=== PATIENT | male | born 1960 | race Caucasian/White ===

== ENCOUNTER → 2019-07-25 07:34 | Outpatient (CLI) | payer OTHER, SELFPAY ==
[2019-07-25 09:01] LABS: BUN Creatinine Ratio 13.6 (6-22); Blood Urea Nitrogen 15 mg/dL (9-20); Calcium 9.6 mg/dL (8.4-10.2); Carbon Dioxide 30 mmol/L (22-32); Chloride 101 mmol/L (98-107); Cholesterol 216 mg/dL (140-199); Estimated Glomerular Filt Rate > 60.0 mL/min (>60); Glucose 95 mg/dL (80-110); HDL Cholesterol 47 mg/dL (40-60); HEMOLYSIS < 15 (0-50); LDL Cholesterol Calculated 144 mg/dL (<100); Potassium 4.5 mmol/L (3.4-5.1); Sodium 140 mmol/L (137-145); Triglycerides 125 mg/dL (35-150)
[2019-07-25 09:31] LABS: Prostate Specific Antigen Scrn 2.16 ng/mL (0.1-4.0)
== END ==
PROVIDERS: PCP Internal Medicine; Visit Provider Internal Medicine
DX: Z00.00 Encounter for general adult medical examination without abnormal findings (principal); E78.5 Hyperlipidemia, unspecified
CPT/HCPCS: 36415; 80048; 80061; G0103

== ENCOUNTER → 2020-05-25 14:32 | Outpatient (CLI) | payer OTHER, SELFPAY ==
[2020-05-26 14:50] LABS: COVID19 Sendout Not Detected (Not Detect)
== END ==
PROVIDERS: PCP Internal Medicine; Visit Provider Physician Assistant
DX: Z01.812 Encounter for preprocedural laboratory examination (principal)
CPT/HCPCS: 87635

== ENCOUNTER 2020-05-28 10:30 | Day surgery (SDC) | payer OTHER, SELFPAY ==
[2020-05-28] VITALS (7 sets, daily range): BP systolic 99–136; BP diastolic 57–73; PULSE 56–72; RESP 10–17; TEMP 36.1–37.1; O2SAT 96–99; BMI 25.1
--- NOTE | 2020-05-28 | PATH_ITS ---
[facility] Accession Number: [id number] . 01 Material submitted: . colon - TRANSVERSE COLON POLYP . 02 Diagnosis: Transverse Colon, Polyp: Tubular adenoma. MRV 05/30/2020 1034 Local . 02 Electronically signed: . Rodney Garcia MD, PhD, Pathologist NPI- [id number] . 01 Gross description: . Received in formalin, labeled transverse colon polyp, and consist of a 0.6 x 0.4 x 0.2 cm harmon-pink polyp. The margin is inked blue. The specimen is bisected and entirely submitted in cassette A1. (EA:[id number]) /MRV 05/29/2020 1101 Local . 02 Pathologist provided ICD-10: D12.3 . 02 CPT . 930441 Performed at: 01 [facility] [address] [id number] MD Danny Salcedo MD Phone: [phone] Performed at: 02 [facility] [address] [place] [id number] MD Clara Damon MD Phone: [phone]
--- NOTE | 2020-05-28 08:03 | PM.HP.1 ---
History of Present Illness History of Present Illness Date Patient Seen: 05/28/20 Chief complaint: SDC Narrative: 59-year-old male who is here for average risk colon cancer screening after prior colonoscopy performed in 2008 was normal. He currently has no active GI symptoms Meds Home Medications and Allergies Home Medications Medication Instructions Recorded Confirmed Type No Known Home Medications 05/28/20 05/28/20 History Allergies Allergy/AdvReac Type Severity Reaction Status Date / Time No Known Drug Allergies Allergy Verified 05/28/20 10:38 Exam Narrative Exam Narrative: General: Patient is well developed, not in apparent distress Cardiovascular: Regular rate and rhythm, no murmurs, rubs, or gallops; no evidence of edema; no palpable abdominal aortic aneurysm Gastrointestinal: Normoactive bowel sounds, soft, nontender, nondistended, no rebound tenderness, no hepatosplenomegaly, no evidence of hernia Assessment & Plan Assessment & Plan narrative: 59-year-old male who is here for colon cancer screening by means of colonoscopy. He is at average risk for colon cancer. There is no family history of colon cancer, colon polyps, and a prior colonoscopy performed in 2008 was normal. Regarding the procedure(s), the risks and potential complications, benefits, and alternatives (including not doing the procedure) were discussed with the patient. The risks include but are not limited to bleeding, splenic injury, infection, perforation which may require surgical intervention, missed lesions, and adverse reactions to sedative medicines. After a question and answer period, the patient agreed to proceed with the procedure(s) and gives informed consent.
[2020-05-28] MEDS: SODIUM CHLORIDE 0.9% 1,000 ML 70 ML IV (10:53)
--- NOTE | 2020-05-28 11:03 | PM.OP.ENDO ---
Operative Date/Time/Diagnoses Date of procedure: 05/28/20 Procedure Notes Procedure in detail: Surgeon: Orville Rush MD Procedure: Colonoscopy with polypectomy Preoperative diagnosis: Colon cancer screening Postoperative diagnosis: Transverse polyp status post polypectomy, grade 1 internal hemorrhoids Medications: Conscious sedation using 5 mg IV of Midazolam and 100 mcg IV of Fentanyl Preanesthesia Assessment An H and P was performed/updated and the Px?s ASA class is 1. The procedure was discussed in detail with the patient. The potential risks and complications including infection, bleeding, missed lesions, perforation, need for surgery in case of perforation, prolonged hospital stay, and were explained. A brief question and answer period was allotted and once all questions were answered, informed consent was obtained. The patient was brought back to the procedure room and placed on standard monitoring. The patient?s vital signs were monitored continuously throughout the entire procedure. Prior to starting, a timeout was performed to confirm the patient?s identity, allergies, medications, and procedure. Procedure in detail The patient was placed in left lateral decubitus position and once adequate sedation was obtained a ETHAN was performed. The digital rectal examination did not reveal any palpable lesions. The tip of the colonoscope was placed in the anal canal and advanced without difficulty all the way to the cecum which was identified by the appendiceal orifice and the ileocecal valve. Careful examination of all salmeron of the colon was performed with irrigation of any residual stool. In the transverse colon, a 4 mm sessile polyp was removed by means of cold snare. Resection and retrieval was complete with minimal bleeding. Retroflexion was performed in the rectum which revealed grade 1 internal hemorrhoids The patient tolerated the procedure well and will be brought back to the recovery area to be discharged once criteria are met. The prep was judged to be good and adequate to identify polyps less than 5 mm. The withdrawal time was 9 minutes. The total physician intraservice time was 15 minutes. Complications There were no complications and estimated blood loss was minimal. Recommendations: Resume previous diet Follow up pathology results Repeat colonoscopy in 5 or 7 or 10 years, depending on pathology results An emergency contact number was given to the patient for any complications related to the procedure
[2020-05-28] MEDS: fentaNYL 250 MCG/5 ML INJ IV (11:20)
[2020-05-28] MEDS: MIDAZOLAM 5 MG/5 ML VIAL IV (11:21)
== END 2020-05-28 12:03 | disposition home or self-care (01) ==
PROVIDERS: PCP Internal Medicine; Referring Provider Internal Medicine Gastroenterology; Visit Provider Internal Medicine Gastroenterology
PROC: 0DJD8ZZ Inspection of Lower Intestinal Tract, Via Natural or Artificial Opening Endoscopic (ICD-10-PCS; CPT 45378; principal; 2020-05-28 11:30)
DX: Z12.11 Encounter for screening for malignant neoplasm of colon (principal); K64.0 First degree hemorrhoids; D12.3 Benign neoplasm of transverse colon
CPT/HCPCS: 45385; J2250; J3010

== ENCOUNTER → 2020-09-10 08:30 | Outpatient (CLI) | payer OTHER, SELFPAY ==
--- NOTE | 2020-09-10 | DI.RAD.S_ITS ---
PROCEDURE: XR SHOULDER RT MIN 2V INDICATIONS: Pain in right shoulder TECHNIQUE: 3 views of the shoulder were acquired. COMPARISON: None. FINDINGS: Bones: No acute fracture. Superior displacement of the lateral clavicle relative to the acromion measuring approximately 1 shaft with. No definite AC joint space widening. There is widening of the coracoclavicular interval. Glenohumeral and AC joint degeneration. Soft tissues: No suspicious soft tissue calcifications. IMPRESSION: Acromioclavicular separation as above. No fracture Dictated by: Von Mercer M.D. on 09/10/2020 at 10:34 Approved by: Von Mercer M.D. on 09/10/2020 at 10:36
== END ==
PROVIDERS: PCP Internal Medicine; Referring Provider Internal Medicine; Visit Provider Internal Medicine
DX: M25.511 Pain in right shoulder (principal); M19.011 Primary osteoarthritis, right shoulder; S43.101A Unspecified dislocation of right acromioclavicular joint, initial encounter
CPT/HCPCS: 73030

== ENCOUNTER → 2020-09-16 07:27 | Outpatient (CLI) | payer OTHER, SELFPAY ==
[2020-09-16 09:34] LABS: Cholesterol 203 mg/dL (140-199); HDL Cholesterol 47 mg/dL (40-60); LDL Cholesterol Calculated 122 mg/dL (<100); Triglycerides 169 mg/dL (35-150)
== END ==
PROVIDERS: PCP Internal Medicine; Referring Provider Internal Medicine; Visit Provider Internal Medicine
DX: E78.5 Hyperlipidemia, unspecified (principal)
CPT/HCPCS: 80061; 84153; 84154

== ENCOUNTER 2023-05-02 22:38 | Emergency (ER) | payer OTHER, SELFPAY ==
[2023-05-02 23:02] VITALS: BP 147/74; PULSE 70; RESP 16; TEMP 36.6; O2SAT 100; BMI 22.8
[2023-05-03 00:44] VITALS: BP 131/67; PULSE 61; RESP 14; O2SAT 98
[2023-05-03 00:48] LABS: Add Manual Diff / Slide Review NO; Basophils Absolute Auto 0 /uL (0-100); Basophils Percent Auto 0.4 % (0-2); Eosinophils Absolute Auto 600 /uL (0-450); Eosinophils Percent Auto 9.3 % (2-4); Hematocrit 37.4 % (41-53); Hemoglobin 12.8 g/dL (13.5-17.5); Lymphocytes Absolute Auto 1300 /uL (1100-4500); Lymphocytes Percent Auto 19.2 % (25-40); Mean Corpuscular HGB Conc 34.2 % (30-36); Mean Corpuscular Hemoglobin 30.1 PG (26-34); Monocytes Absolute Auto 900 /uL (0-900); Monocytes Percent Auto 12.4 % (3-14); Neutrophils Absolute Auto 4100 /uL (1500-7000); Neutrophils Percent Auto 58.7 % (50-75); Platelet Count 284 X10^3/uL (150-400); Red Blood Cell Count 4.25 X10^6/uL (4.5-5.9); Red Cell Distribution Width 12.9 % (11.6-14.8)
[2023-05-03 00:54] LABS: Alanine Aminotransferase 37 IU/L (<50); Albumin 3.9 g/dL (3.5-5.0); Albumin Globulin Ratio 1.3 (1.0-2.8); Alkaline Phosphatase 84 U/L (38-126); Aspartate Aminotransferase 31 IU/L (17-59); BUN Creatinine Ratio 25.9 (6-22); Bilirubin Total 0.4 mg/dL (0.2-1.3); Blood Urea Nitrogen 21 mg/dL (9-20); Carbon Dioxide 29 mmol/L (22-32); Chloride 100 mmol/L (98-107); Estimated Glomerular Filt Rate > 60 mL/min (>60); Globulin 2.9 g/dL (1.7-4.1); Glucose 100 mg/dL (80-110); HEMOLYSIS 24 (0-50); Lipase 94 U/L (23-300); Sodium 134 mmol/L (137-145); Total Protein 6.8 g/dL (6.3-8.2)
--- NOTE | 2023-05-03 01:15 | DI.RAD.S_ITS ---
PROCEDURE: XR ABDOMEN 1V INDICATIONS: poss obstruction TECHNIQUE: One view of the abdomen acquired. COMPARISON: [facility], CT, CT ABDOMEN PELVIS WITH CONTRAST, 03/14/2023, 14:21. FINDINGS: Surgical changes and devices: None. Bowel: Bowel gas pattern demonstrates moderate stool distention throughout the ascending, transverse, and descending colon. No abnormal dilated small bowel loops. Soft tissues: No suspicious abdominal calcifications. Bones: No suspicious bony lesions. IMPRESSION: 1. Moderate stool distention throughout the colon may reflect a developing distal colonic obstruction secondary to patient's known rectal mass. If clinical concern persists, consider further evaluation with CT. Dictated by: Danny Dunaway M.D. on 05/03/2023 at 2:11 Approved by: Danny Dunaway M.D. on 05/03/2023 at 2:15
[2023-05-03 01:46] LABS: Appearance Urine UA CLEAR; Bilirubin Urine UA NEGATIVE (NEGATIVE); Color Urine UA YELLOW; Glucose Urine UA NEGATIVE (Negative); Ketones Urine UA NEGATIVE (NEGATIVE); Leukocyte Esterase Urine UA NEGATIVE (NEGATIVE); Nitrite Urine UA NEGATIVE (Negative); Occult Blood Urine UA NEGATIVE (Negative); Protein Urine UA NEGATIVE (Negative); Specific Gravity Urine UA <=1.005 (1.000-1.035); Urobilinogen Urine UA 0.2 E.U./dL (0.2); pH Urine UA 5.5 (4.5-8.0)
[2023-05-03 01:54] LABS: Bacteria Urine None Seen; Culture Indicated Urine Cult Not Indicated; RBC Urine None Seen (0-5/HPF); Squamous Epithelial Cell Urine None Seen (0-5/HPF); Urine Comments Microscopic Normal; WBC Urine None Seen (0-5/HPF)
[2023-05-03] MEDS: HYDROMORPHONE 0.5 MG INJ IV (03:23)
[2023-05-03 03:27] VITALS: BP 128/59; PULSE 64; RESP 14; O2SAT 97
[2023-05-03 04:00] VITALS: BP 107/58; PULSE 56; O2SAT 94
--- NOTE | 2023-05-03 04:01 | ED_ITS ---
HPI - General Adult General Chief complaint: Abdominal Pain Stated complaint: ABD pain Time Seen by Provider: 05/03/23 04:00 Source: patient Mode of arrival: Ambulatory History of Present Illness HPI narrative: 62-year-old gentleman who was diagnosed with metastatic colon cancer in March of this year. He had a essentially normal colonoscopy 2 years ago. He has been seen by Colorectal surgeons at [facility] and has started chemotherapy with oncologist at [facility]. He comes in today complaining of increasing abdominal pain. He is concerned that he may have an obstruction. He is not vomiting, describes no fever cough or chills. He is scheduled to see his oncologist later this morning and have his 2nd round of chemotherapy later today. Related Data Home Medications Medication Instructions Recorded Confirmed No Known Home Medications 05/28/20 03/14/23 Allergies Allergy/AdvReac Type Severity Reaction Status Date / Time No Known Drug Allergies Allergy Verified 03/14/23 09:59 Review of Systems Review of Systems Narrative: Pertinent positive and negative findings as per HPI Patient History Medical History (Updated 05/03/23 @ 05:09 by Camryn Grande MD) Metastatic colon cancer to liver Social History household members: spouse Smoking Status: Never smoker Smoking Status: Never smoker alcohol intake frequency: 0-2 drinks per day Substance Use Type: does not use Exam Initial Vital Signs Initial Vital Signs: Vital Signs Temperature 97.8 F 05/02/23 23:02 Pulse Rate 70 05/02/23 23:02 Respiratory Rate 16 05/02/23 23:02 Blood Pressure 147/74 H 05/02/23 23:02 Pulse Oximetry 100 05/02/23 23:02 Oxygen Delivery Method Room Air 05/02/23 23:02 General: Alert appropriate in no acute distress Respiratory: Able to speak in full sentences, no obvious respiratory distress Abdomen: Positive bowel tones, no significant distention, mild diffuse tend erness only. Skin: No obvious rashes, warm and dry Neurologic: Grossly intact no obvious asymmetries or abnormalities Psych: appropriate insight and affect, cooperative Course Orders Ordered: ED Orders 05/03/23 00:19 EKG-12 Lead Stat 05/03/23 00:35 Complete Blood Count AUTO DIFF Stat Comprehensive Metabolic Panel Stat Lipase Stat 05/03/23 01:15 XR abdomen 1V Stat 05/03/23 01:33 UA Complete [Urinalysis and Microscopic] Stat Sodium Chloride (Normal Saline 0.9%) 1,000 mls @ 1,000 mls/hr IV BOLUS ONE Stop: 05/03/23 05:28 Last Admin: 05/03/23 04:33 Dose: 1,000 mls/hr Documented By: RICHY Ondansetron HCl (Ondansetron 4 Mg Odt) 4 mg PO NOW PRN PRN Reason: Nausea And Vomiting Ondansetron HCl (Ondansetron 4 Mg/2 Ml Inj) 4 mg IV NOW PRN PRN Reason: Nausea And Vomiting Discontinued Medications Hydromorphone HCl (Hydromorphone 0.5 Mg Inj) 0.5 mg IV NOW ONE Stop: 05/03/23 03:20 Last Admin: 05/03/23 03:23 Dose: 0.5 mg Documented By: Vital Signs Vital signs: Vital Signs - 8 hr 05/02/23 23:02 05/03/23 00:44 05/03/23 03:27 Temperature 97.8 F Pulse Rate 70 61 64 Respiratory Rate 16 14 14 Blood Pressure 147/74 H 131/67 128/59 L Pulse Oximetry 100 98 97 Oxygen Delivery Method Room Air Room Air Room Air Medical Decision Making Lab Data 05/03/23 00:35 05/03/23 00:35 Labs: Lab Results 05/03/23 05/03/23 05/03/23 Range/Units 00:35 00:35 01:33 WBC 7.0 (4.5-11.0) X10^3/uL RBC 4.25 L (4.5-5.9) X10^6/uL Hgb 12.8 L (13.5-17.5) g/dL Hct 37.4 L (41-53) % MCV 88.0 (80-100) fL MCH 30.1 (26-34) PG MCHC 34.2 (30-36) % RDW 12.9 (11.6-14.8) % Plt Count 284 (150-400) X10^3/uL Neut % (Auto) 58.7 (50-75) % Lymph % (Auto) 19.2 L (25-40) % Treasure % (Auto) 12.4 (3-14) % Eos % (Auto) 9.3 H (2-4) % Baso % (Auto) 0.4 (0-2) % Neut # (Auto) 4100 (9372-2513) /uL Lymph # (Auto) 1300 (1987-4866) /uL Treasure # (Auto) 900 (0-900) /uL Eos # (Auto) 600 H (0-450) /uL Baso # (Auto) 0 (0-100) /uL Sodium 134 L (137-145) mmol/L Potassium 4.0 (3.4-5.1) mmol/L Chloride 100 (98-107) mmol/L Carbon Dioxide 29 (22-32) mmol/L BUN 21 H (9-20) mg/dL Creatinine 0.81 (0.66-1.25) mg/dL Estimated GFR > 60 (>60) mL/min BUN/Creatinine Ratio 25.9 H (6-22) Glucose 100 (80-110) mg/dL Calcium 9.0 (8.4-10.2) mg/dL Total Bilirubin 0.4 (0.2-1.3) mg/dL AST 31 (17-59) IU/L ALT 37 (<50) IU/L Alkaline Phosphatase 84 (38-126) U/L Total Protein 6.8 (6.3-8.2) g/dL Albumin 3.9 (3.5-5.0) g/dL Globulin 2.9 (1.7-4.1) g/dL Albumin/Globulin Ratio 1.3 (1.0-2.8) Lipase 94 (23-300) U/L Urine Color Yellow Urine Appearance Clear Urine pH 5.5 (4.5-8.0) Ur Specific Kent <=1.005 (1.000-1.035) Urine Protein Negative (Negative) Urine Glucose (UA) Negative (Negative) g/dL Urine Ketones Negative (NEGATIVE) Urine Occult Blood Negative (Negative) Urine Nitrate Negative (Negative) Urine Bilirubin Negative (NEGATIVE) Urine Urobilinogen 0.2 (0.2) E.U./dL Ur Leukocyte Esterase Negative (NEGATIVE) Urine RBC None seen (0-5/HPF) Urine WBC None seen (0-5/HPF) Ur Squamous Epith Cells None seen (0-5/HPF) Urine Bacteria None seen (None) Ur Culture Indicated? Cult not indicated Micro UA Comment Microscopic normal MDM Narrative Medical decision making narrative: CC: Abdominal pain Complicating co-morbidities: Colon cancer metastatic to his liver with partially obstructing mass at the rectosigmoid junction, approximately 18 cm from the rectum, was diagnosed in March of this year. Data collected from: patient, Social determinants of health that may influence the patients condition: Medical records reviewed: Extensive records from [facility], oncology notes, surgery notes and references to surgical notes and consultation at [facility] are all reviewed. Current plan is for chemotherapy for the next 2 months to try and shrink some of the liver metastases. Discussion was to try and avoid colon surgery at this point but if you did become obstructed than palliative surgery would be recommended. He is scheduled for his 2nd round of chemotherapy later today and notes that he had significant diarrhea with the 1st round of chemotherapy. He has been intermittently using MiraLax as well as hydrocodone for abdominal pain. He notes that he is currently passing gas. Differential considered: Partial bowel obstruction, complete bowel obstruction Exam documented above, pertinent findings include: Mildly tender abdomen without significant distention certainly not surgical Lab Test results independently reviewed as above. Pertinent findings: CBC is unremarkable Chemistries are reassuring Independently reviewed EKG Sinus bradycardia at a rate of 59 with normal intervals, normal axis and no acute ischemic changes Imaging studies independently reviewed: Upright x-ray of the abdomen shows no free air and concern for partial bowel obstruction from his rectal mass Treatments: IV fluids, parenteral narcotics for pain control Discussion: 62-year-old gentleman with metastatic colon cancer concern for obstruction. This point he does appear to have a partial obstruction but is still passing gas he is not having any nausea. Concern for increasing constipation proximal to the colon cancer mass. At this time he does not have an acute surgical abdomen. He does have follow-up with in just a few hours with his oncologist. I have deferred any specific bowel regimen recommendations and have sent a note to his oncologist with updates of his ER visit today. I am not sure if a full bowel prep would be safe for appropriate given the colon tumor. It is high enough up and he has no stool in his rectum so I do not think that an enema would be all that effective and I am not sure if a red rubber catheter enema to extend prox imal to the tumor mass would be safe. He certainly would be at higher risk for colon perforation. With shared decision-making we opted to proceed with a L of fluid to try and prevent continued worsening of his constipation. He noted that he had significant diarrhea after his last round of chemotherapy and that may prove actually therapeutic if he continues with his 2nd round of chemotherapy later today as scheduled. He is discharge home in stable condition and will follow-up with his oncologist as scheduled. Discharge Plan Departure Patient Disposition: Home Clinical Impression: Constipation, Partial obstruction of colon Colon cancer Qualifiers: Colon location: sigmoid Qualified Code(s): C18.7 - Malignant neoplasm of sigmoid colon Instructions: DI for Constipation Activity Restrictions/Additional Instructions: Thank you for coming in today Your x-ray shows you do not have a complete obstruction and you are passing gas. You do have a significant amount of stool throughout your colon. You were given a L of fluid in the emergency department, sometimes this can help with constipation. I am going to send you home this morning. Please keep your [address] Erickson. I will let him know that you are in the department. You know that you have had multiple discussions with the gastrointestinal surgeons at [facility] as well as Dr. Erickson. I know you were hoping to get through chemotherapy prior to considering any type of colon surgery. It may be that we are able to help get enough fluid into your colon so that you are able to clean her colon out and then continue with medicine such as MiraLax to keep your stool essentially liquid to avoid obstruction. Please ask Dr. Erickson what he recommends for a bowel cleanse that would be safe in light of the partial obstruction. You may also need to talk with your Surgeons. It is safe for you to go home at this time. I hope that the rest of your treatment goes well. Prescriptions: No Action No Known Home Medications Referrals: Miscellishmael,Doctor, [Primary Care Provider] - Stand Alone Forms: Patient Portal/API
[2023-05-03 04:30] VITALS: BP 141/68; PULSE 69; O2SAT 97
[2023-05-03] MEDS: SODIUM CHLORIDE 0.9% 1,000 ML 1000 ML IV (04:33)
[2023-05-03 05:28] VITALS: BP 139/67; PULSE 69; RESP 16; O2SAT 97
== END 2023-05-03 05:28 | disposition home or self-care (01) ==
PROVIDERS: Emergency Provider Emergency Medicine
DX: K56.600 Partial intestinal obstruction, unspecified as to cause (principal); K59.00 Constipation, unspecified; C18.7 Malignant neoplasm of sigmoid colon
CPT/HCPCS: 36415; 74018; 80053; 81001; 83690; 85025; 93005; 96361; 96374; 99284; J1170

== ENCOUNTER 2023-07-16 13:12 | Emergency (ER) | payer OTHER, SELFPAY ==
[2023-07-16] VITALS (14 sets, daily range): BP systolic 108–138; BP diastolic 55–66; PULSE 54–67; RESP 13–26; TEMP 36.6; O2SAT 95–100
[2023-07-16 13:30] LABS: Add Manual Diff / Slide Review NO; Basophils Absolute Auto 100 /uL (0-100); Eosinophils Absolute Auto 400 /uL (0-450); Eosinophils Percent Auto 5.1 % (2-4); Hemoglobin 13.7 g/dL (13.5-17.5); Lymphocytes Absolute Auto 2200 /uL (1100-4500); Lymphocytes Percent Auto 31.2 % (25-40); Mean Corpuscular HGB Conc 34.4 % (30-36); Mean Corpuscular Hemoglobin 31.7 PG (26-34); Mean Corpuscular Volume 92.3 fL (80-100); Monocytes Absolute Auto 500 /uL (0-900); Monocytes Percent Auto 7.6 % (3-14); Neutrophils Absolute Auto 4000 /uL (1500-7000); Neutrophils Percent Auto 55.1 % (50-75); Platelet Count 223 X10^3/uL (150-400); Red Blood Cell Count 4.33 X10^6/uL (4.5-5.9); White Blood Cell Count 7.2 X10^3/uL (4.5-11.0)
[2023-07-16 13:38] LABS: Alanine Aminotransferase 71 IU/L (<50); Albumin 3.7 g/dL (3.5-5.0); Albumin Globulin Ratio 1.3 (1.0-2.8); Alkaline Phosphatase 66 U/L (38-126); Aspartate Aminotransferase 48 IU/L (17-59); Bilirubin Total 1.2 mg/dL (0.2-1.3); Blood Urea Nitrogen 17 mg/dL (9-20); Calcium 9.2 mg/dL (8.4-10.2); Carbon Dioxide 29 mmol/L (22-32); Chloride 100 mmol/L (98-107); Estimated Glomerular Filt Rate > 60 mL/min (>60); Globulin 2.9 g/dL (1.7-4.1); Glucose 133 mg/dL (80-110); HEMOLYSIS < 15 (0-50); Lipase 181 U/L (23-300); Potassium 3.7 mmol/L (3.4-5.1); Sodium 135 mmol/L (137-145); Total Protein 6.6 g/dL (6.3-8.2)
--- NOTE | 2023-07-16 13:40 | DI.RAD.S_ITS ---
PROCEDURE: XR ABDOMEN 1V INDICATIONS: Abdominal pain TECHNIQUE: One view of the abdomen acquired. COMPARISON: [facility], CR, XR ABDOMEN 1V, 05/03/2023, 1:23. FINDINGS: Surgical changes and devices: None. Bowel: Bowel gas pattern is normal. Large colonic stool load. Soft tissues: No suspicious abdominal calcifications. Visualized solid organ contours appear normal in size. Bones: No suspicious bony lesions. IMPRESSION: Large colonic stool load. Dictated by: Kenny Nguyen M.D. on 07/16/2023 at 13:29 Approved by: Kenny Nguyen M.D. on 07/16/2023 at 13:29
--- NOTE | 2023-07-16 13:43 | ED.GENADULT ---
HPI - General Adult General Chief complaint: Abdominal Pain Stated complaint: Abd Pain Time Seen by Provider: 07/16/23 13:22 Source: patient and EMS Mode of arrival: Ambulatory History of Present Illness HPI narrative: Patient is a 62-year-old male. Has a history of colon cancer. Is receiving chemotherapy. His last effusion ended on of this week. He states that normally about this time he starts to get left lower quadrant abdominal pain. That was happening to him today. He did not think much of it because it was something that happens to him often. However as the morning went on he had a very sudden increase in discomfort to the pain. He was driving at the time. He was able to pull off to the side. His daughter was in the car. He got out of the car. Tried to stretch. Symptoms were not getting any better. He became lightheaded. He did not pass out. His daughter was the 1 that contacted 911. At the time he was not having chest pain or shortness of breath. No palpitations. No nausea or vomiting. Here in the emergency department he states he feels much better. The pain is back down to what he would expect that this point in his treatment. He is still feeling somewhat lightheaded. He is never passed out in the past. Related Data Home Medications Medication Instructions Recorded Confirmed No Known Home Medications 05/28/20 03/14/23 Allergies Allergy/AdvReac Type Severity Reaction Status Date / Time No Known Drug Allergies Allergy Verified 07/16/23 13:31 Review of Systems Constitutional Constitutional: Reports system reviewed and no additional complaints, except as documented Cardiovascular Cardiovascular: Reports system reviewed and no additional complaints, except as documented Respiratory Respiratory: Reports system reviewed and no additional complaints, except as documented Gastrointestinal Gastrointestinal: Reports system reviewed and no additional complaints, except as documented Musculoskeletal Musculoskeletal: Reports system reviewed and no additional complaints, except as documented Integumentary/Breasts Skin/Breast: Reports system reviewed and no additional complaints, except as documented Patient History Medical History Metastatic colon cancer to liver Social History household members: spouse Smoking Status: Never smoker Smoking Status: Never smoker alcohol intake frequency: 0-2 drinks per day Substance Use Type: does not use Exam Initial Vital Signs Initial Vital Signs: Vital Signs Temperature 98 F 07/16/23 13:21 Pulse Rate 56 L 07/16/23 13:21 Respiratory Rate 17 07/16/23 13:21 Blood Pressure 108/59 L 07/16/23 13:21 Oxygen Delivery Method Room Air 07/16/23 13:21 Const General: cooperative and No ill appearing HENMT Head: normal to inspection and normocephalic Resp Effort & Inspection: normal respiratory effort Auscultation: clear to auscultation bilaterally Cardio Rate: regular rate Rhythm: regular rhythm GI Inspection: normal to inspection and non-distended Palpation: tender (Left lower quadrant) Neuro General: patient alert, patient awake, patient oriented x3 and moves all extremities Extrem General: capillary refill normal Course Orders Ordered: ED Orders 07/16/23 13:19 Complete Blood Count AUTO DIFF Stat Comprehensive Metabolic Panel Stat Lipase Stat EKG-12 Lead Stat 07/16/23 13:40 XR abdomen 1V Stat 07/16/23 15:15 Urinalysis and Microscopic Stat Ondansetron HCl (Ondansetron 4 Mg Odt) 4 mg PO NOW PRN PRN Reason: Nausea And Vomiting Ondansetron HCl (Ondansetron 4 Mg/2 Ml Inj) 4 mg IV NOW PRN PRN Reason: Nausea And Vomiting Vital Signs Vital signs: Vital Signs - 8 hr 07/16/23 13:21 07/16/23 13:24 07/16/23 13:25 Temperature 98 F Pulse Rate 56 L 57 L 56 L Respiratory Rate 17 25 H 16 Blood Pressure 108/59 L Pulse Oximetry 96 98 Oxygen Delivery Method Room Air Room Air 07/16/23 13:25 07/16/23 13:30 07/16/23 13:31 Temperature Pulse Rate 61 60 Respiratory Rate 24 26 H Blood Pressure 108/59 L Pulse Oximetry 99 98 Oxygen Delivery Method 07/16/23 13:31 07/16/23 13:45 07/16/23 14:00 Temperature Pulse Rate 54 L 60 Respiratory Rate 14 17 Blood Pressure 138/60 Pulse Oximetry 98 95 Oxygen Delivery Method Room Air 07/16/23 14:00 07/16/23 14:15 07/16/23 14:30 Temperature Pulse Rate 64 66 Respiratory Rate 13 20 Blood Pressure 125/66 Pulse Oximetry 98 99 Oxygen Delivery Method Room Air 07/16/23 14:30 07/16/23 14:45 07/16/23 15:00 Temperature Pulse Rate 66 67 Respiratory Rate 17 19 Blood Pressure 118/60 Pulse Oximetry 98 98 Oxygen Delivery Method Room Air 07/16/23 15:00 07/16/23 15:15 Temperature Pulse Rate 64 Respiratory Rate 14 Blood Pressure 113/55 L Pulse Oximetry Oxygen Delivery Method Medical Decision Making Lab Data Lab results reviewed: Yes I reviewed the patient's lab results. 07/16/23 13:19 07/16/23 13:19 Labs: Lab Results 07/16/23 07/16/23 Range/Units 13:19 15:15 WBC 7.2 (4.5-11.0) X10^3/uL RBC 4.33 L (4.5-5.9) X10^6/uL Hgb 13.7 (13.5-17.5) g/dL Hct 40.0 L (41-53) % MCV 92.3 (80-100) fL MCH 31.7 (26-34) PG MCHC 34.4 (30-36) % RDW 16.0 H (11.6-14.8) % Plt Count 223 (150-400) X10^3/uL Neut % (Auto) 55.1 (50-75) % Lymph % (Auto) 31.2 (25-40) % [place] % (Auto) 7.6 (3-14) % Eos % (Auto) 5.1 H (2-4) % Baso % (Auto) 1.0 (0-2) % Neut # (Auto) 4000 (7028-6895) /uL Lymph # (Auto) 2200 (9577-0696) /uL [place] # (Auto) 500 (0-900) /uL Eos # (Auto) 400 (0-450) /uL Baso # (Auto) 100 (0-100) /uL Sodium 135 L (137-145) mmol/L Potassium 3.7 (3.4-5.1) mmol/L Chloride 100 (98-107) mmol/L Carbon Dioxide 29 (22-32) mmol/L BUN 17 (9-20) mg/dL Creatinine 0.81 (0.66-1.25) mg/dL Estimated GFR > 60 (>60) mL/min BUN/Creatinine Ratio 21.0 (6-22) Glucose 133 H (80-110) mg/dL Calcium 9.2 (8.4-10.2) mg/dL Total Bilirubin 1.2 (0.2-1.3) mg/dL AST 48 (17-59) IU/L ALT 71 H (<50) IU/L Alkaline Phosphatase 66 (38-126) U/L Total Protein 6.6 (6.3-8.2) g/dL Albumin 3.7 (3.5-5.0) g/dL Globulin 2.9 (1.7-4.1) g/dL Albumin/Globulin Ratio 1.3 (1.0-2.8) Lipase 181 (23-300) U/L Urine Color Yellow Urine Appearance Clear Urine pH 6.0 (4.5-8.0) Ur Specific [place] 1.025 (1.000-1.035) Urine Protein Trace H (Negative) Urine Glucose (UA) Negative (Negative) g/dL Urine Ketones Negative (NEGATIVE) Urine Occult Blood Negative (Negative) Urine Nitrate Negative (Negative) Urine Bilirubin Negative (NEGATIVE) Urine Urobilinogen 1.0 (0.2) E.U./dL Ur Leukocyte Esterase Negative (NEGATIVE) Urine RBC None seen (0-5/HPF) Urine WBC None seen (0-5/HPF) Ur Squamous Epith Cells None seen (0-5/HPF) Urine Bacteria None seen (None) Urine Mucus 1+ H (Negative) Ur Culture Indicated? Cult not indicated Imaging Data Abdominal x-ray: Radiologist's Impression: PROCEDURE: XR ABDOMEN 1V INDICATIONS: Abdominal pain TECHNIQUE: One view of the abdomen acquired. COMPARISON: [facility], , XR ABDOMEN 1V, 05/03/2023, 1:23. FINDINGS: Surgical changes and devices: None. Bowel: Bowel gas pattern is normal. Large colonic stool load. Soft tissues: No suspicious abdominal calcifications. Visualized solid organ contours appear normal in size. Bones: No suspicious bony lesions. IMPRESSION: Large colonic stool load. ECG Data Attestation: I personally reviewed and interpreted this ECG as follows: Interpretation: Sinus bradycardia Ventricular rate of 57 Normal axis Normal QRS Normal QTC No ST T wave changes MDM Narrative Medical decision making narrative: Patient has been relatively asymptomatic since being here in the ER. His labs are unremarkable. Urinalysis shows no signs of infection. EKGs unremarkable. Ambulated to the bathroom. Tolerating oral intake. I suspect that the lightheadedness was most likely related to the sudden increase in abdominal discomfort. I feel that we can hold on any radiologic studies for now given the resolution of his symptoms. Will discharge patient home with return precautions. He expressed understanding and agreement. Discharge Plan Departure Patient Disposition: Home Clinical Impression: Abdominal pain, Pre-syncope Instructions: DI for Abdominal Pain-Adult Activity Restrictions/Additional Instructions: Recommend that you continue to keep all of your scheduled medical appointments and continue to take all of your medications. Your urinalysis did not show any signs of an infection. The rest of your labs were very reassuring as well. Return to the emergency department for new or worsening symptoms. Prescriptions: No Action No Known Home Medications Referrals: Miscellaneous,Doctor, MD [Primary Care Provider] - Stand Alone Forms: Patient Portal/API
--- NOTE | 2023-07-16 15:30 | PC.NURSE ---
pt ambulated well, denies dizziness/lightheaded. Denies pain.
[2023-07-16 15:32] LABS: Appearance Urine UA CLEAR; Bilirubin Urine UA NEGATIVE (NEGATIVE); Color Urine UA YELLOW; Glucose Urine UA NEGATIVE (Negative); Ketones Urine UA NEGATIVE (NEGATIVE); Leukocyte Esterase Urine UA NEGATIVE (NEGATIVE); Nitrite Urine UA NEGATIVE (Negative); Occult Blood Urine UA NEGATIVE (Negative); Protein Urine UA TRACE (Negative); Specific Gravity Urine UA 1.025 (1.000-1.035)
[2023-07-16 15:39] LABS: Bacteria Urine None Seen; Culture Indicated Urine Cult Not Indicated; Mucus Urine 1+ (Negative); RBC Urine None Seen (0-5/HPF); Squamous Epithelial Cell Urine None Seen (0-5/HPF); WBC Urine None Seen (0-5/HPF)
== END 2023-07-16 16:03 | disposition home or self-care (01) ==
PROVIDERS: Emergency Provider Emergency Medicine
DX: R10.32 Left lower quadrant pain (principal); R55 Syncope and collapse; R00.1 Bradycardia, unspecified; Z85.038 Personal history of other malignant neoplasm of large intestine
CPT/HCPCS: 36415; 74018; 80053; 81001; 83690; 85025; 93005; 96374; 99284

== ENCOUNTER 2024-03-13 10:48 | Emergency (ER) | payer OTHER, SELFPAY ==
[2024-03-13] VITALS (18 sets, daily range): BP systolic 116–162; BP diastolic 61–92; PULSE 62–112; RESP 12–21; TEMP 37.1; O2SAT 96–99; BMI 48.8
--- NOTE | 2024-03-13 10:52 | DI.RAD.S_ITS ---
PROCEDURE: XR CHEST 1V INDICATIONS: chest pain TECHNIQUE: One view of the chest was acquired. COMPARISON: None. FINDINGS: Surgical changes and devices: Left chest wall port tip projects over the cavoatrial junction. Surgical clips and drain project over the abdomen. Lungs and pleura: Small pleural effusions. No consolidation. No pneumothorax. Mediastinum: Mediastinal contours appear normal. Heart size is normal. Bones and chest wall: No suspicious bony lesions. Overlying soft tissues appear unremarkable. IMPRESSION: Small pleural effusions. Dictated by: Kenny Nguyen M.D. on 03/13/2024 at 11:25 Approved by: Kenny Nguyen M.D. on 03/13/2024 at 11:26
--- NOTE | 2024-03-13 10:57 | EKG_ITS ---
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
[2024-03-13 11:34] LABS: Add Manual Diff / Slide Review NO; Basophils Absolute Auto 0 /uL (0-100); Basophils Percent Auto 0.6 % (0-2); Eosinophils Absolute Auto 100 /uL (0-450); Eosinophils Percent Auto 1.9 % (2-4); Hemoglobin 13.4 g/dL (13.5-17.5); Lymphocytes Absolute Auto 700 /uL (1100-4500); Lymphocytes Percent Auto 12.9 % (25-40); Mean Corpuscular HGB Conc 34.3 % (30-36); Mean Corpuscular Hemoglobin 31.3 PG (26-34); Mean Corpuscular Volume 91.1 fL (80-100); Monocytes Absolute Auto 700 /uL (0-900); Monocytes Percent Auto 13.6 % (3-14); Neutrophils Absolute Auto 3700 /uL (1500-7000); Platelet Count 210 X10^3/uL (150-400); Red Blood Cell Count 4.29 X10^6/uL (4.5-5.9); Red Cell Distribution Width 15.4 % (11.6-14.8); White Blood Cell Count 5.2 X10^3/uL (4.5-11.0)
[2024-03-13 11:41] LABS: INR 0.9 (0.9-1.3); Prothrombin Time 10.7 SECONDS (9.4-12.5)
[2024-03-13 11:44] LABS: PTT Partial Thromboplastin Tim 35 SECONDS (25.1-36.5)
[2024-03-13 11:46] LABS: Alanine Aminotransferase 33 IU/L (<50); Albumin 3.9 g/dL (3.5-5.0); Albumin Globulin Ratio 1.4 (1.0-2.8); Alkaline Phosphatase 148 U/L (38-126); Aspartate Aminotransferase 32 IU/L (17-59); BUN Creatinine Ratio 16.1 (6-22); Bilirubin Total 0.7 mg/dL (0.2-1.3); Blood Urea Nitrogen 15 mg/dL (9-20); Calcium 8.6 mg/dL (8.4-10.2); Carbon Dioxide 23 mmol/L (22-32); Chloride 105 mmol/L (98-107); Creatine Kinase 38 U/L (55-170); Estimated Glomerular Filt Rate > 60 mL/min (>60); Globulin 2.7 g/dL (1.7-4.1); Glucose 123 mg/dL (80-110); HEMOLYSIS < 15 (0-50); Lipase 49 U/L (23-300); Magnesium 1.6 mg/dL (1.6-2.3); Potassium 3.8 mmol/L (3.4-5.1); Sodium 136 mmol/L (137-145); Total Protein 6.6 g/dL (6.3-8.2)
[2024-03-13 11:58] LABS: NT-proBNP (BNP-Adult 18+) 43 pg/mL (<125); Troponin I < 0.012 ng/mL (0.01-0.034)
--- NOTE | 2024-03-13 13:34 | EKG_ITS ---
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
--- NOTE | 2024-03-13 13:36 | PC.NURSE ---
This RN takes over care and checks on patient. He is A&O, sitting upright and answers all questions appropriately. He c/o chest pain with inspiration in RIGHT chest as a 02/21. This RN draws repeat trop lab from his LEFT chest port. Draws back easily. Encouraged to use call light for any needs and to alert this RN of any changes.
[2024-03-13 14:05] LABS: Troponin I < 0.012 ng/mL (0.01-0.034)
--- NOTE | 2024-03-13 14:57 | ED.CHESTPAIN ---
HPI - Chest Pain General Chief Complaint: Chest Pain Stated Complaint: Thinks he's bleeding in his chest Time Seen by Provider: 03/13/24 14:44 Source: patient, family, RN notes reviewed and old records reviewed Mode of arrival: Family Vehicle Limitations: no limitations History of Present Illness HPI narrative: 62-year-old male with known stage IV metastatic cancer, patient has received chemotherapy status post liver resection and HI a placement, resection of rectal mass new ileostomy patient has both pulmonary and hepatic metastases. Last seen at [facility] oncology visit in [place] or again but had visit [address] Katz here locally with Oncology. Looking to pursue more palliative/symptomatic treatments. Patient had CT chest abdomen pelvis with IV contrast on 11/02/2023. Patient presents today with concern for bleeding in his chest. Patient states he developed right-sided pleuritic chest pain in the past 2 days. He notes that he [place] not go [place] the dump and was hauling a lot of things the day before that but did not think that he has pulled a muscle or did anything. He states pain radiates a little bit down his right upper quadrant. He denies fevers or chills, he occasionally has lightheadedness but states that is typical. No syncope. Denies any shortness of breath. Denies any hemoptysis he has had some mild cough. No fevers or chills, no nausea or vomiting. He has not ostomy in place, he states he has been stooling regularly with no black or bloody stools. Patient currently takes oxycodone at home for pain and omeprazole. His last chemotherapy was 3 weeks ago. He is scheduled to have a reversal of his ostomy in the next 2 weeks. No prior blood clots but he has not on any anticoagulation. No known drug allergies. No regular tobacco, alcohol or recreational drugs. He gets majority of his care at [facility] in [facility] but is connected to oncology locally at [facility]. Related Data Previous Rx's Medication Instructions Recorded levofloxacin 750 mg tablet 750 mg PO DAILY 7 days #7 tabs 03/13/24 Allergies Allergy/AdvReac Type Severity Reaction Status Date / Time No Known Drug Allergies Allergy Verified 07/16/23 13:31 Review of Systems Review of Systems ROS Unobtainable: All systems reviewed & are unremarkable except as noted in HPI and below Patient History Medical History Metastatic colon cancer to liver Social History household members: spouse Smoking Status: Never smoker Smoking Status: Never smoker alcohol intake frequency: holidays/special occasions only Substance Use Type: does not use Exam Narrative Exam Narrative: GENERAL: Alert and oriented x three, male in mild distress HEENT: Head normocephalic, atraumatic, EOMI, pupils reactive, face symmetric, moist mucous membranes NECK: Supple, full range of motion CARDIOVASCULAR: Regular rate and rhythm without murmurs, rubs or gallops. RESPIRATORY: Breath sounds equal bilaterally, no wheezes rales or rhonchi. No tachypnea accessory muscle use. Speaks in full sentences. Patient has some mild tender in his over the right ribs and right upper quadrant abdomen. ABDOMEN: Soft, patient has some generalized abdominal tenderness slightly increased to the right. Normoactive bowel sounds all 4 quadrants. No guarding or rebound, rigidity, no mass, patient has not ostomy on the right mid abdomen, has brown liquidy stool in the bag. : No CVA tenderness EXTREMITIES: Normal range of motion, no clubbing or edema. Neurovascularly intact NEUROLOGICAL: Cranial nerves II through XII grossly intact. Moving all extremities SKIN: Warm, dry, no petechiae, no rashes or lesions. Initial Vital Signs Initial Vital Signs: Vital Signs Temperature 98.8 F 03/13/24 10:52 Pulse Rate 112 H 03/13/24 10:52 Respiratory Rate 20 03/13/24 10:52 Blood Pressure 159/92 H 03/13/24 10:52 Pulse Oximetry 98 03/13/24 10:52 Oxygen Delivery Method Room Air 03/13/24 10:52 Course Orders Ordered: ED Orders 03/13/24 10:52 XR chest 1V Stat EKG-12 Lead Stat 03/13/24 11:25 Complete Blood Count AUTO DIFF Stat Comprehensive Metabolic Panel Stat Lipase Stat Magnesium Stat NT-proBNP (BNP-Adult 18+) Stat PTT Partial Thromboplastin [place] Stat Prothrombin Time INR Stat Troponin & CK Cardiac Panel Stat 03/13/24 13:25 EKG-12 Lead Stat 03/13/24 13:33 Trop I [Troponin I] Stat 03/13/24 15:17 CT abdomen pelvis w con Stat CT angio chest PE protocol Stat Discontinued Medications Aspirin (Aspirin 81 Mg Chew Tab) 324 mg PO NOW ONE Stop: 03/13/24 10:53 Last Admin: 03/13/24 13:04 Dose: Not Given Documented By: Heparin Sodium (Porcine) (Heparin 500 Unit/5 Ml Port Flush) 500 unit IV PRN PRN PRN Reason: Flush Last Admin: 03/13/24 17:07 Dose: 500 unit Documented By: SB Vital Signs Vital signs: Vital Signs - 8 hr 03/13/24 10:52 03/13/24 11:00 03/13/24 11:00 Temperature 98.8 F Pulse Rate 112 H 88 Respiratory Rate 20 Blood Pressure 159/92 H 151/85 H Pulse Oximetry 98 98 Oxygen Delivery Method Room Air 03/13/24 11:30 03/13/24 12:00 03/13/24 12:00 Temperature Pulse Rate 76 70 Respiratory Rate 16 Blood Pressure 122/74 Pulse Oximetry 96 96 Oxygen Delivery Method 03/13/24 12:30 03/13/24 12:30 03/13/24 13:00 Temperature Pulse Rate 69 Respiratory Rate 13 Blood Pressure 124/68 116/70 Pulse Oximetry 97 Oxygen Delivery Method 03/13/24 13:00 03/13/24 13:30 03/13/24 13:44 Temperature Pulse Rate 73 68 Respiratory Rate 17 16 Blood Pressure 120/81 Pulse Oximetry 97 Oxygen Delivery Method 03/13/24 13:44 03/13/24 14:00 03/13/24 14:00 Temperature Pulse Rate 67 64 Respiratory Rate 20 18 Blood Pressure 129/61 Pulse Oximetry 97 97 Oxygen Delivery Method 03/13/24 14:30 03/13/24 14:31 03/13/24 14:31 Temperature Pulse Rate 63 63 Respiratory Rate 19 16 Blood Pressure 162/77 H Pulse Oximetry 97 98 Oxygen Delivery Method Room Air 03/13/24 15:00 03/13/24 15:01 03/13/24 15:01 Temperature Pulse Rate 63 62 Respiratory Rate 13 12 Blood Pressure 158/85 H Pulse Oximetry 97 97 Oxygen Delivery Method Room Air 03/13/24 15:35 03/13/24 15:36 03/13/24 15:36 Temperature Pulse Rate 68 66 Respiratory Rate 21 14 Blood Pressure 136/63 Pulse Oximetry 96 98 Oxygen Delivery Method 03/13/24 16:00 07/30/24 16:00 03/13/24 16:30 Temperature Pulse Rate 66 67 Respiratory Rate 21 14 Blood Pressure 120/62 Pulse Oximetry 99 97 Oxygen Delivery Method Room Air Room Air 03/13/24 16:30 03/13/24 17:00 03/13/24 17:00 Temperature Pulse Rate 67 Respiratory Rate 15 Blood Pressure 131/66 125/63 Pulse Oximetry 97 Oxygen Delivery Method Room Air MDM - Chest Pain Lab Data 03/13/24 11:25 03/13/24 11:25 Labs: Lab Results 03/13/24 03/13/24 Range/Units 11:25 13:33 WBC 5.2 (4.5-11.0) X10^3/uL RBC 4.29 L (4.5-5.9) X10^6/uL Hgb 13.4 L (13.5-17.5) g/dL Hct 39.0 L (41-53) % MCV 91.1 (80-100) fL MCH 31.3 (26-34) PG MCHC 34.3 (30-36) % RDW 15.4 H (11.6-14.8) % Plt Count 210 (150-400) X10^3/uL Neut % (Auto) 71.0 (50-75) % Lymph % (Auto) 12.9 L (25-40) % Walton % (Auto) 13.6 (3-14) % Eos % (Auto) 1.9 L (2-4) % Baso % (Auto) 0.6 (0-2) % Neut # (Auto) 3700 (4101-6283) /uL Lymph # (Auto) 700 L (9876-7965) /uL Walton # (Auto) 700 (0-900) /uL Eos # (Auto) 100 (0-450) /uL Baso # (Auto) 0 (0-100) /uL PT 10.7 (9.4-12.5) SECONDS INR 0.9 (0.9-1.3) APTT 35 (25.1-36.5) SECONDS Sodium 136 L (137-145) mmol/L Potassium 3.8 (3.4-5.1) mmol/L Chloride 105 (98-107) mmol/L Carbon Dioxide 23 (22-32) mmol/L BUN 15 (9-20) mg/dL Creatinine 0.93 (0.66-1.25) mg/dL Estimated GFR > 60 (>60) mL/min BUN/Creatinine Ratio 16.1 (6-22) Glucose 123 H (80-110) mg/dL Calcium 8.6 (8.4-10.2) mg/dL Magnesium 1.6 (1.6-2.3) mg/dL Total Bilirubin 0.7 (0.2-1.3) mg/dL AST 32 (17-59) IU/L ALT 33 (<50) IU/L Alkaline Phosphatase 148 H (38-126) U/L Total Creatine Kinase 38 L (55-170) U/L Troponin I < 0.012 < 0.012 (0.01-0.034) ng/mL NT-Pro-B Natriuret Pep 43 (<125) pg/mL Total Protein 6.6 (6.3-8.2) g/dL Albumin 3.9 (3.5-5.0) g/dL Globulin 2.7 (1.7-4.1) g/dL Albumin/Globulin Ratio 1.4 (1.0-2.8) Lipase 49 (23-300) U/L Imaging Data Chest x-ray: Radiologist's Impression: Danny Wilson??63??M??1960 ? Allergy/Adv: No Known Drug Allergies Close Chest X-Ray (Signed) Kenny Nguyen - 03/13/24 Abdomen X-Ray (Signed) Kenny Nguyen - 07/16/23 Abdomen X-Ray (Signed) Danny Dunaway - 05/03/23 Shoulder X-Ray (Signed) Von Mercer - 09/10/20 Telemetry Strips 05/28/20 [place] [address] XRay Report Signed Patient: Danny Wilson MR#: [id number] : 1960 Acct:[id number] Age/Sex: 63 / M Date of Service: 03/13/24 Loc: ED Accession Number: [id number] Procedure: XR chest 1V Ordering Provider: Becky Granados D.O. PROCEDURE: XR CHEST 1V INDICATIONS: chest pain TECHNIQUE: One view of the chest was acquired. COMPARISON: None. FINDINGS: Surgical changes and devices: Left chest wall port tip projects over the cavoatrial junction. Surgical clips and drain project over the abdomen. Lungs and pleura: Small pleural effusions. No consolidation. No pneumothorax. Mediastinum: Mediastinal contours appear normal. Heart size is normal. Bones and chest wall: No suspicious bony lesions. Overlying soft tissues appear unremarkable. IMPRESSION: Small pleural effusions. Dictated by: Kneny Nguyen M.D. on 03/13/2024 at 11:25 Approved by: Kenny Nguyen M.D. on 03/13/2024 at 11:26 CT scan - chest: Radiologist's Impression: Close Chest CTA (Signed) Antonio Arcos - 03/13/24 Abdomen/Pelvis CT (Signed) Antonio Arcos - 03/13/24 Chest X-Ray (Signed) Kenny Nguyen - 03/13/24 Abdomen X-Ray (Signed) Kenny Nguyen - 07/16/23 Abdomen X-Ray (Signed) Danny Dunaway - 05/03/23 Shoulder X-Ray (Signed) Von Mercer - 09/10/20 Telemetry Strips 05/28/20 [place] [address] CT Scan Report Signed Patient: Danny Wilson MR#: [id number] : 1960 Acct:[id number] Age/Sex: 63 / M Date of Service: 03/13/24 Loc: ED Accession Number: [id number] Procedure: CT angio chest PE protocol Ordering Provider: Becky Granados D.O. PROCEDURE: CT ANGIO CHEST PE PROTOCOL INDICATIONS: right chest/abd pain, known meta rectal ca TECHNIQUE: After the administration of intravenous contrast, 2 mm thick sections acquired from the pulmonary apices to the posterior costophrenic angles. 3-dimensional maximum intensity projection (MIP) coronal and sagittal reformats were then acquired through the thorax. For radiation dose reduction, the following was used: automated exposure control, adjustment of mA and/or kV according to patient size. COMPARISON: [facility], CT, CT CHEST ABDOMEN PELVIS WITH CONTRAST, 07/22/2023, 11:59. FINDINGS: Image quality: Diagnostic. Pulmonary arteries: Pulmonary arteries are normal in size, and demonstrate no intraluminal filling defects to suggest central pulmonary embolism. Lower Neck: No enlarged lymph nodes. Thyroid: No thyroid nodules which require sonographic follow up, per consensus guidelines. Axillae: No enlarged lymph nodes. Chest Wall: Unremarkable. Bones: Unremarkable. Lungs and Pleura: Small right and trace left pleural effusions. Bilateral lower lobe dependent airspace opacity. Multiple subcentimeter bilateral pulmonary nodules, new compared to 07/22/2023. Heart: Heart size is normal. No pericardial effusion. Thoracic Vessels: No aortic aneurysm. Mediastinum and Arely: No enlarged lymph nodes. Esophagus: No wall thickening. No hiatal hernia. Upper Abdomen: Visualized portions of the upper abdomen demonstrate partial hepatectomy as well as multiple new hepatic masses. IMPRESSION: 1. No pulmonary embolus. 2. New moderate pulmonary metastatic disease. 3. Progressive hepatic metastatic disease. 4. Bibasilar atelectasis versus pneumonia with right greater than left pleural effusions. Dictated by: Antonio Arcos M.D. on 03/13/2024 at 16:30 Approved by: Antonio Arcos M.D. on 03/13/2024 at 16:33 CT scan - abdomen/pelvis: Radiologist's Impression: Close Chest CTA (Signed) Antonio Arcos - 03/13/24 Abdomen/Pelvis CT (Signed) Antonio Arcos - 03/13/24 Chest X-Ray (Signed) Kenny Nguyen - 03/13/24 Abdomen X-Ray (Signed) Kenny Nguyen - 07/16/23 Abdomen X-Ray (Signed) Danny Dunaway - 05/03/23 Shoulder X-Ray (Signed) Von Mercer - 09/10/20 Telemetry Strips 05/28/20 [place] [address] CT Scan Report Signed Patient: Danny Wilson MR#: [id number] : 1960 Acct:[id number] Age/Sex: 63 / M Date of Service: 03/13/24 Loc: ED Accession Number: [id number] Procedure: CT abdomen pelvis w con Ordering Provider: Becky Granados D.O. PROCEDURE: CT ABDOMEN PELVIS W CON INDICATIONS: right chest/abd pain, known meta rectal ca TECHNIQUE: After the administration of intravenous contrast, axial sections acquired from the lung bases to the pubic symphysis. Coronal and sagittal reformats were performed. For radiation dose reduction, the following was used: automated exposure control, adjustment of mA and/or kV according to patient size. COMPARISON: [facility], CT, CT CHEST ABDOMEN PELVIS WITH CONTRAST, 07/22/2023, 11:59. [facility], CT, CT ANGIO CHEST PE PROTOCOL, 03/13/2024, 15:26. FINDINGS: Image quality: Diagnostic. Lower Chest: Small right and trace left pleural effusions. Multiple bibasilar pulmonary nodules, as before. ABDOMEN: Liver: Multiple hepatic masses, increased in number and size compared to 07/22/2023, largest of which are in the right hepatic lobe posteriorly, measuring 27 mm as well as the medial segment left hepatic lobe measuring 21 mm. Lateral segment left hepatic lobe has been resected. Gallbladder: Surgically absent. Biliary ducts: No biliary dilation. Pancreas: No ductal dilation. Calcifications within the pancreatic neck. Spleen: Size is within normal limits. Adrenal Glands: No adrenal nodules. Kidneys and Ureters: No hydronephrosis. No solid mass. No complex renal cystic lesion which requires follow up. Stomach and Bowel: Normal colonic caliber, without significant wall thickening. Rectal anastomosis. Right-sided ileostomy. Peritoneum: Small amount of perihepatic ascites. No free air. Ventral Wall: No significant ventral hernia. Rectus diastasis is present. Abdominal Nodes: No retroperitoneal or mesenteric adenopathy by size criteria. Vessels: Aorta and inferior vena cava are normal in size. PELVIS: Pelvic Organs: Unremarkable. Bladder: No bladder wall thickening, accounting for underdistention. Pelvic Nodes: No enlarged lymph nodes. Miscellaneous: No inguinal hernias are seen. Bones: No aggressive osseous abnormality. IMPRESSION: 1. Right greater than left pleural effusions. 2. Bibasilar pulmonary metastases. 3. Progressive hepatic metastases. 4. Postsurgical sequelae. 5. Small amount of perihepatic ascites. Dictated by: Antonio Arcos M.D. on 03/13/2024 at 16:25 Approved by: Antonio Arcos M.D. on 03/13/2024 at 16:30 ECG Data Attestation: I personally reviewed and interpreted this ECG as follows: Prior ECG tracings: available for review Interpretation: EKG 1. Shows a rate of 91 MN 140 QRS is 76 QTC 430, no acute ST changes appreciated patient's EKG appears similar to prior. Sinus rhythm rate of 68 MN 138 QRS is 76 QTC of 401, no acute ST elevation patient does have T-wave inverted in lead 3. Patient has prior from 07/16/2023 which appears similar. MDM Narrative Medical decision making narrative: 63-year-old male with complaint of right-sided chest pain for the past 2 days describes it as pruritic. Has known metastatic stage IV rectal cancer with Mets to the lungs and abdomen. Workup shows normal troponins, hemoglobin appears stable, vitals are overall appropriate. He does have some small pleural effusion possibly causing pain but is high-risk for pulmonary emboli. Discussed with patient pain is sort of right lower chest as well as right upper quadrant so we will obtain CT abdomen pelvis as well as CT PE scan. Labs show white count of 5.2 hemoglobin of 13.4 consistent with priors from 2022 platelets of 210, coags are negative sodium is 136 electrolytes are otherwise appropriate BUN 15 creatinine 0.93 glucose of 123, alk-phos is 148, patient does have known metastatic cancer. Bilirubin is 0.7 with AST ALT of 33 and 32, total CK is 38, troponins less than 0.012 and on repeat is once again less than 0.012. Chest x-ray shows small pleural effusions no consolidation no pneumothorax. Patient has a port in place. EKG shows sinus rhythm, Q-wave with inverted T-wave in 3, and similar in appearance to prior EKG from 07/16/2023. CT PE scan, no pulmonary embolism new moderate pulmonary metastatic disease progressive hepatic metastatic disease bibasilar atelectasis versus pneumonia with right greater than left pleural effusions. CT abdomen pelvis, shows right greater than left pleural effusions bibasilar pulmonary metastases progressive hepatic metastases postsurgical sequela small amount of peripancreatic ascites. Patient took his home pain medication here in the department. Patient notes he has a prescription for meloxicam at home. We discussed he can also add Tylenol as needed. Reviewed findings with patient, we will go ahead and cover for potential bacterial pneumonia or suspect this is more metastatic disease. Patient does have good follow up with Oncology locally as well as in [place]. He has not hypoxic vitals have overall been stable. Patient has follow up scheduled for medical clearance for his ileostomy reversal scheduled in the next several days. Discharge Plan Departure Patient Disposition: Home Clinical Impression: Right-sided chest pain, Pleural effusion, Pneumonia Activity Restrictions/Additional Instructions: Your imaging today does show pleural effusions and possibly some pneumonia. There is no blood clot, your images showed changes from CT scans in July of 2023 with increased metastatic disease at that time but were not compared to your most recent scans in October in [place]. Please take oral antibiotics until completed. Prescription was sent to [facility]. You may continue your home medication as prescribed. You can take Tylenol up to a 1000 mg every 6 hours as needed for pain with your oxycodone. Please return for fevers, new or worsening chest pain or shortness of breath, lightheadedness or passing out, coughing up blood, new swelling of extremities or other new or concerning changes Prescriptions: New levofloxacin 750 mg tablet 750 mg PO DAILY 7 Days Qty: 7 0RF Referrals: Daiana Ramos MD [Primary Care Provider] - Stand Alone Forms: Patient Portal/API
--- NOTE | 2024-03-13 15:17 | DI.CT.S_ITS ---
PROCEDURE: CT ABDOMEN PELVIS W CON INDICATIONS: right chest/abd pain, known meta rectal ca TECHNIQUE: After the administration of intravenous contrast, axial sections acquired from the lung bases to the pubic symphysis. Coronal and sagittal reformats were performed. For radiation dose reduction, the following was used: automated exposure control, adjustment of mA and/or kV according to patient size. COMPARISON: [facility], CT, CT CHEST ABDOMEN PELVIS WITH CONTRAST, 07/22/2023, 11:59. [facility], CT, CT ANGIO CHEST PE PROTOCOL, 03/13/2024, 15:26. FINDINGS: Image quality: Diagnostic. Lower Chest: Small right and trace left pleural effusions. Multiple bibasilar pulmonary nodules, as before. ABDOMEN: Liver: Multiple hepatic masses, increased in number and size compared to 07/22/2023, largest of which are in the right hepatic lobe posteriorly, measuring 27 mm as well as the medial segment left hepatic lobe measuring 21 mm. Lateral segment left hepatic lobe has been resected. Gallbladder: Surgically absent. Biliary ducts: No biliary dilation. Pancreas: No ductal dilation. Calcifications within the pancreatic neck. Spleen: Size is within normal limits. Adrenal Glands: No adrenal nodules. Kidneys and Ureters: No hydronephrosis. No solid mass. No complex renal cystic lesion which requires follow up. Stomach and Bowel: Normal colonic caliber, without significant wall thickening. Rectal anastomosis. Right-sided ileostomy. Peritoneum: Small amount of perihepatic ascites. No free air. Ventral Wall: No significant ventral hernia. Rectus diastasis is present. Abdominal Nodes: No retroperitoneal or mesenteric adenopathy by size criteria. Vessels: Aorta and inferior vena cava are normal in size. PELVIS: Pelvic Organs: Unremarkable. Bladder: No bladder wall thickening, accounting for underdistention. Pelvic Nodes: No enlarged lymph nodes. Miscellaneous: No inguinal hernias are seen. Bones: No aggressive osseous abnormality. IMPRESSION: 1. Right greater than left pleural effusions. 2. Bibasilar pulmonary metastases. 3. Progressive hepatic metastases. 4. Postsurgical sequelae. 5. Small amount of perihepatic ascites. Dictated by: Antonio Arcos M.D. on 03/13/2024 at 16:25 Approved by: Antonio Arcos M.D. on 03/13/2024 at 16:30
--- NOTE | 2024-03-13 15:17 | DI.CT.S_ITS ---
PROCEDURE: CT ANGIO CHEST PE PROTOCOL INDICATIONS: right chest/abd pain, known meta rectal ca TECHNIQUE: After the administration of intravenous contrast, 2 mm thick sections acquired from the pulmonary apices to the posterior costophrenic angles. 3-dimensional maximum intensity projection (MIP) coronal and sagittal reformats were then acquired through the thorax. For radiation dose reduction, the following was used: automated exposure control, adjustment of mA and/or kV according to patient size. COMPARISON: [facility], CT, CT CHEST ABDOMEN PELVIS WITH CONTRAST, 07/22/2023, 11:59. FINDINGS: Image quality: Diagnostic. Pulmonary arteries: Pulmonary arteries are normal in size, and demonstrate no intraluminal filling defects to suggest central pulmonary embolism. Lower Neck: No enlarged lymph nodes. Thyroid: No thyroid nodules which require sonographic follow up, per consensus guidelines. Axillae: No enlarged lymph nodes. Chest Wall: Unremarkable. Bones: Unremarkable. Lungs and Pleura: Small right and trace left pleural effusions. Bilateral lower lobe dependent airspace opacity. Multiple subcentimeter bilateral pulmonary nodules, new compared to 07/22/2023. Heart: Heart size is normal. No pericardial effusion. Thoracic Vessels: No aortic aneurysm. Mediastinum and Arely: No enlarged lymph nodes. Esophagus: No wall thickening. No hiatal hernia. Upper Abdomen: Visualized portions of the upper abdomen demonstrate partial hepatectomy as well as multiple new hepatic masses. IMPRESSION: 1. No pulmonary embolus. 2. New moderate pulmonary metastatic disease. 3. Progressive hepatic metastatic disease. 4. Bibasilar atelectasis versus pneumonia with right greater than left pleural effusions. Dictated by: Antonio Arcos M.D. on 03/13/2024 at 16:30 Approved by: Antonio Arcos M.D. on 03/13/2024 at 16:33
== END 2024-03-13 17:17 | disposition home or self-care (01) ==
PROVIDERS: Emergency Provider Emergency Medicine; PCP Internal Medicine
DX: J18.9 Pneumonia, unspecified organism (principal); J90 Pleural effusion, not elsewhere classified; R10.11 Right upper quadrant pain; R07.89 Other chest pain; C20 Malignant neoplasm of rectum; C78.00 Secondary malignant neoplasm of unspecified lung; C79.89 Secondary malignant neoplasm of other specified sites
CPT/HCPCS: 36415; 71045; 71275; 74177; 80053; 82550; 83690; 83735; 83880; 84484; 85025; 85610; 85730; 93005; 99284; J1642; Q9967